=== PATIENT | female | born 1980 | race Caucasian/White ===

== ENCOUNTER 2017-11-16 09:23 | Emergency (ER) | payer OTHER ==
[~2017-11-16] VITALS: Ht 152.4 cm; Wt 105.9 kg
[2017-11-16 09:36] VITALS: TEMP 36.9; Ht 152.4 cm; Wt 105.9 kg
[2017-11-16 10:48] LABS: BASO % 0.6 %; BASO ABS # 0.05 K/uL (0-0.2); EOS % 2.8 %; EOS ABS # 0.24 K/uL (0-0.5); HEMOGLOBIN 14.3 g/dL (12.0-16.0); IG# 0.03 K/uL (0.00-0.02); LYMPH % 27.5 %; LYMPH ABS # 2.35 K/uL (1.2-3.4); MEAN CELL VOLUME 85.8 fL (80-100); MEAN CORPUSCULAR HEMOGLOBIN 28.5 pg (25-34); MEAN CORPUSCULAR HGB CONC 33.3 g/dl (32-36); MEAN PLATELET VOLUME 9.7 fL (7.4-10.4); MONO % 8.5 %; MONO ABS # 0.73 K/uL (0.11-0.59); NEUT % 60.2 %; NEUT ABS # 5.16 K/uL (1.4-6.5); PLATELET COUNT 197 K/uL (130-400); RED CELL DISTRIBUTION WIDTH CV 14.1 % (11.5-14.5); RED CELL DISTRIBUTION WIDTH SD 43.8 fL (36.4-46.3); WHITE BLOOD COUNT 8.56 K/uL (4.8-10.8)
[2017-11-16 10:57] LABS: INR 0.9 (0.9-1.1); PTT PATIENT 25.4 SECONDS (21.0-31.0)
[2017-11-16 11:18] LABS: ALBUMIN 3.9 gm/dl (3.4-5.0); ALT/SGPT 20 U/L (12-78); AST/SGOT 11 U/L (15-37); BLOOD UREA NITROGEN 10 mg/dl (7-18); CALCIUM 9.4 mg/dl (8.5-10.1); CARBON DIOXIDE 24 mmol/L (21-32); CREATININE 0.71 mg/dl (0.60-1.20); GLUCOSE 102 mg/dl (70-99); POTASSIUM 4.2 mmol/L (3.5-5.1); SODIUM 139 mmol/L (136-145)
[2017-11-16 11:20] LABS: ALKALINE PHOSPHATASE 51 U/L (45-117); TOTAL PROTEIN 7.1 gm/dl (6.4-8.2)
[2017-11-16] MEDS ORDERED: TRAZ50TA35 PO (11:30)
[2017-11-16] MEDS ORDERED: PRAV20TA PO (11:30)
[2017-11-16] MEDS ORDERED: ERGO500037 PO (11:30)
[2017-11-16] MEDS ORDERED: CHOL20009 PO (11:30)
[2017-11-16] MEDS ORDERED: CLR10 PO (11:30)
[2017-11-16] MEDS ORDERED: MONT1TAB3 PO (11:30)
[2017-11-16] MEDS ORDERED: SERT-234 PO (11:30)
[2017-11-16] MEDS ORDERED: MOME100A INH (11:30)
[2017-11-16] MEDS ORDERED: TIZA2CAP PO (11:30)
[2017-11-16] MEDS ORDERED: OPTIRAY 320 IV PRN (11:45)
--- NOTE | 2017-11-16 11:50 | DIAGNOSTIC IMAGING REPORT ---
HEAD CT NONCONTRAST CT DOSE: 1192.64 mGy.cm HISTORY: Headache. eval for cva/mass TECHNIQUE: Multiaxial CT images of the head were performed without the use of intravenous contrast. Automated exposure control was utilized for this study. A dose lowering technique was utilized adhering to the principles of ALARA. Comparison: None. Findings: The paranasal sinuses and mastoid air cells are clear. The calvarium and skull base are intact. The ventricles and sulci are within normal limits. There is no mass, hematoma, midline shift, or acute infarct. Impression: No acute intracranial abnormality. Electronically signed by: Gustavo Agarwal M.D. 11/16/2017 11:49 AM Dictated Date/Time: 11/16/2017 11:42 AM
--- NOTE | 2017-11-16 11:57 | DIAGNOSTIC IMAGING REPORT ---
CT OF THE NECK WITH CONTRAST CLINICAL HISTORY: Left sided swelling. Evaluate for abscess. COMPARISON STUDY: No previous studies for comparison. TECHNIQUE: Axial images of the neck were obtained following intravenous injection of 88 cc of Optiray 320 IV. Sagittal and coronal reconstructions were viewed. FINDINGS: No abscess is identified within the neck. There is tonsillar hypertrophy which results in airway narrowing. There is mild mucosal thickening of the sinuses. There are secretions within the left sphenoid sinus. There is a cavity of the left third maxillary molar. There is a small periapical lucency of this tooth. No adjacent soft tissue abscess is identified. Several teeth are missing. Major vasculature of the neck is patent. Lung apices are unremarkable. No suspicious osseous lesions are present. IMPRESSION: 1. No abscess within neck. 2. Tonsillar hypertrophy which results in moderate airway narrowing. 3. Periapical abscess/cyst and cavity involving the left third maxillary molar. Cavity of the left second maxillary molar. Electronically signed by: Alexi Pyle M.D. 11/16/2017 11:56 AM Dictated Date/Time: 11/16/2017 11:47 AM
[2017-11-16] MEDS ORDERED: AMOX875T PO (12:18)
[2017-11-16] MEDS ORDERED: OXYC1TAB3 PO (12:18)
[2017-11-16] MEDS ORDERED: OXYCODONE HCL IR 5 MG TAB (IMMEDIATE RELEASE) PO STA (12:19)
[2017-11-16] MEDS ORDERED: AMOXICILLIN/CLAVULANATE TAB 875 MG TAB PO ONE (12:30)
[2017-11-16 12:37] VITALS: BP 148/69; PULSE 82; O2SAT 97
--- NOTE | 2017-11-16 17:17 | EMERGENCY ROOM VISIT NOTE ---
History Report prepared by Brittni: Josee Rdz Under the Supervision of: Dr. Ronan Blackmon M.D. First contact with patient: 09:49 Chief Complaint: OTHER COMPLAINT Stated Complaint: OCIPITAL NURALOYIA ABCESS,PAIN SWELLING LEFT SIDE History of Present Illness The patient is a 37 year old female who presents to the Emergency Room with complaints of constant left-sided facial pain for the past month. The patient has a history of occipital neuralgia, myofascial pain syndrome, and cervical disc problems around C3-C6. She has had pain for the past 3-4 years. She has been following up with pain management in [place] and a neurologist in [place] to manage her pain. She has had injections and epidurals in the past for pain but states that she has not had any for a while. She is not currently taking any narcotics. She states that she has not been on narcotics for months. She has an impacted wisdom tooth on the left side of her jaw. She was on Augmentin and steroids at the beginning of the month for this and bronchitis and her COPD. The patient states that her pain has persisted. She is currently complaining of pressure and pain behind her left eye, down her face, into her neck, and down into her left shoulder and arm. She feels like she is unable to breathe out of her left nostril. Her jaw and neck feel swollen. The patient states that she has been having a headache. She has a history of migraines. For the past week and a half she has been having some numbness in her left arm. Today she noticed some cloudy vision in her left eye and states that it feels like she has a film over her pupil. She denies any eye pain. She just states that it hurts behind her eye like a migraine. The patient has been taking Tylenol daily for pain. She estimates that she has been taking 1000mg 6x daily for the past month. She rates her current pain as a 10/10 in severity. Source of History: patient Onset: 1 month ago Position: head Symptom Intensity: 10/10 Quality: pressure Timing: constant Modifying Factors (Relieving): tylenol Associated Symptoms: + headache, + neck pain, + numbness (left arm) Note: Pt reports cloudy vision. Review of Systems See HPI for pertinent positives & negatives. A total of 10 systems reviewed and were otherwise negative. Past Medical & Surgical Medical Problems: (1) COPD (chronic obstructive pulmonary disease) (2) Myofascial pain syndrome (3) Occipital neuralgia Family History No pertinent history stated. Social History Smoking Status: Current Every Day Smoker Housing Status: lives with family Current/Historical Medications Scheduled Amoxicillin & Pot Clavulanate (Augmentin 875-125 mg), 875 MG PO BID Cholecalciferol (Vitamin D), 2,000 UNITS PO DAILY Ergocalciferol (Vitamin D 78977 Unit), 50,000 UNIT PO WK Loratadine (Claritin), 10 MG PO DAILY Mometasone Furoate-Formoterol (Dulera 100/5 Mcg), 1 AER INH BID Montelukast Sodium (Singulair), 10 MG PO DAILY Pravastatin (Pravachol ), 20 MG PO DAILY Sertraline (Zoloft), 100 MG PO DAILY Tizanidine (Zanaflex), Unknown Dose PO TID Scheduled PRN Oxycodone Ir (Roxicodone Ir), 5 MG PO Q4H PRN for Pain Trazodone Hcl (Trazodone), Unknown Dose PO HS PRN for Sleep Allergies Coded Allergies: Ciprofloxacin (Unverified Allergy, Unknown, ., 11/16/17) Citalopram (Unverified Allergy, Unknown, ., 11/16/17) Codeine (Unverified Allergy, Unknown, AGITATION, 11/16/17) Hydroxyzine (Unverified Allergy, Unknown, ., 11/16/17) Ketorolac (Unverified Allergy, Unknown, ., 11/16/17) Lorazepam (Unverified Allergy, Unknown, ., 11/16/17) Morphine (Unverified Allergy, Unknown, INCREASED BP, 11/16/17) Moxifloxacin (Unverified Allergy, Unknown, ., 11/16/17) Nitrofurantoin (Unverified Allergy, Unknown, SWELLING, 11/16/17) Paroxetine (Unverified Allergy, Unknown, AGITATION, 11/16/17) Sulfa Antibiotics (Unverified Allergy, Unknown, SWELLING, 11/16/17) Sumatriptan (Unverified Allergy, Unknown, LOW BP, 11/16/17) Tramadol (Unverified Allergy, Unknown, FACE BREAKS OUT, 11/16/17) Tromethamine (Unverified Allergy, Unknown, ., 11/16/17) Valproic Acid (Unverified Allergy, Unknown, SEVERE PAIN, 11/16/17) Uncoded Allergies: HYDROBROMIDE (Allergy, Severe, UNKNOWN, 11/16/17) Physical Exam Vital Signs Date Time Temp Pulse Resp B/P (MAP) Pulse Ox O2 Delivery O2 Flow Rate FiO2 11/16/17 12:37 82 18 148/69 97 11/16/17 12:10 68 18 117/65 98 Room Air 11/16/17 09:36 36.9 101 18 96 Room Air Physical Exam Constitutional: Vital signs reviewed. BP 117/65 Eyes: Pupils are equal round reactive to light. Conjunctiva are noninjected. Unremarkable funduscopic exam bilaterally, limited due to lack of dilation. Left lazy eye noted. ENT: Pharynx is clear without erythema or exudate. Mucous membranes are moist. Neck supple without meningeal signs. Left facial tenderness with tenderness in the neck, no appreciable swelling, erythema, or increased warmth. Respiratory: Clear to auscultation bilaterally. Breath sounds are equal bilaterally. Cardiovascular: Regular rate and rhythm. No rubs or gallops. GI: Soft, nondistended and nontender. Bowel sounds are present. Musculoskeletal: No peripheral edema. No lower extremity tenderness. Integumentary: No cyanosis. Neurological: The patient is awake and alert. Cranial nerves II-XII are intact. Motor is 5 out of 5 all extremities. Sensation is intact to light touch all extremities, except some dysesthesia to the left upper arm. Normal speech. No pronator drift. Psychiatric: Normal affect. Medical Decision & Procedures ER Provider Diagnostic Interpretation: Radiology results as stated below per my review and the radiologist's interpretation: CT OF THE NECK WITH CONTRAST CLINICAL HISTORY: Left sided swelling. Evaluate for abscess. COMPARISON STUDY: No previous studies for comparison. TECHNIQUE: Axial images of the neck were obtained following intravenous injection of 88 cc of Optiray 320 IV. Sagittal and coronal reconstructions were viewed. FINDINGS: No abscess is identified within the neck. There is tonsillar hypertrophy which results in airway narrowing. There is mild mucosal thickening of the sinuses. There are secretions within the left sphenoid sinus. There is a cavity of the left third maxillary molar. There is a small periapical lucency of this tooth. No adjacent soft tissue abscess is identified. Several teeth are missing. Major vasculature of the neck is patent. Lung apices are unremarkable. No suspicious osseous lesions are present. IMPRESSION: 1. No abscess within neck. 2. Tonsillar hypertrophy which results in moderate airway narrowing. 3. Periapical abscess/cyst and cavity involving the left third maxillary molar. Cavity of the left second maxillary molar. Electronically signed by: Alexi Pyle M.D. 11/16/2017 11:56 AM Dictated Date/Time: 11/16/2017 11:[address]AST CT DOSE: 1192.64 mGy.cm HISTORY: Headache. eval for cva/mass TECHNIQUE: Multiaxial CT images of the head were performed without the use of intravenous contrast. Automated exposure control was utilized for this study. A dose lowering technique was utilized adhering to the principles of ALARA. Comparison: None. Findings: The paranasal sinuses and mastoid air cells are clear. The calvarium and skull base are intact. The ventricles and sulci are within normal limits. There is no mass, hematoma, midline shift, or acute infarct. Impression: No acute intracranial abnormality. Electronically signed by: Gustavo Agarwal M.D. 11/16/2017 11:49 AM Dictated Date/Time: 11/16/2017 11:42 AM Laboratory Results 11/16/17 10:40 Red Blood Count 5.01, Mean Corpuscular Volume 85.8, Mean Corpuscular Hemoglobin 28.5, Mean Corpuscular Hemoglobin Concent 33.3, Mean Platelet Volume 9.7, Neutrophils (%) (Auto) 60.2, Lymphocytes (%) (Auto) 27.5, Monocytes (%) (Auto) 8.5, Eosinophils (%) (Auto) 2.8, Basophils (%) (Auto) 0.6, Neutrophils # (Auto) 5.16, Lymphocytes # (Auto) 2.35, Monocytes # (Auto) 0.73, Eosinophils # (Auto) 0.24, Basophils # (Auto) 0.05 11/16/17 10:40 Test 11/16/17 10:20 11/16/17 10:40 Urine Test NEG (NEG) Urine Opiates Screen NEG (NEG) Urine Methadone, Qualitative NEG (NEG) Urine Barbiturates NEG (NEG) Urine Phencyclidine (PCP) Level NEG (NEG) Ur Amphetamine/Methamphetamine NEG (NEG) MDMA (Ecstasy) Screen NEG (NEG) Urine Benzodiazepines Screen NEG (NEG) Urine Cocaine Metabolite NEG (NEG) Urine Marijuana (THC) NEG (NEG) White Blood Count 8.56 K/uL (4.8-10.8) Red Blood Count 5.01 M/uL (4.2-5.4) Hemoglobin 14.3 g/dL (12.0-16.0) Hematocrit 43.0 % (37-47) Mean Corpuscular Volume 85.8 fL (80-100) Mean Corpuscular Hemoglobin 28.5 pg (25-34) Mean Corpuscular Hemoglobin Concent 33.3 g/dl (32-36) Platelet Count 197 K/uL (130-400) Mean Platelet Volume 9.7 fL (7.4-10.4) Neutrophils (%) (Auto) 60.2 % Lymphocytes (%) (Auto) 27.5 % Monocytes (%) (Auto) 8.5 % Eosinophils (%) (Auto) 2.8 % Basophils (%) (Auto) 0.6 % Neutrophils # (Auto) 5.16 K/uL (1.4-6.5) Lymphocytes # (Auto) 2.35 K/uL (1.2-3.4) Monocytes # (Auto) 0.73 K/uL (0.11-0.59) Eosinophils # (Auto) 0.24 K/uL (0-0.5) Basophils # (Auto) 0.05 K/uL (0-0.2) RDW Standard Deviation 43.8 fL (36.4-46.3) RDW Coefficient of Variation 14.1 % (11.5-14.5) Immature Granulocyte % (Auto) 0.4 % Immature Granulocyte # (Auto) 0.03 K/uL (0.00-0.02) Prothrombin Time 9.6 SECONDS (9.0-12.0) Prothromb Time International Ratio 0.9 (0.9-1.1) Activated Partial Thromboplast Time 25.4 SECONDS (21.0-31.0) Partial Thromboplastin Ratio 1.0 Anion Gap 8.0 mmol/L (3-11) Est Creatinine Clear Calc Drug Dose 119.3 ml/min Estimated GFR () 126.1 Estimated GFR (Non- 108.8 BUN/Creatinine Ratio 14.3 (10-20) Calcium Level 9.4 mg/dl (8.5-10.1) Total Bilirubin 0.5 mg/dl (0.2-1) Direct Bilirubin < 0.1 mg/dl (0-0.2) Aspartate Amino Transf (AST/SGOT) 11 U/L (15-37) Alanine Aminotransferase (ALT/SGPT) 20 U/L (12-78) Alkaline Phosphatase 51 U/L (45-117) Total Protein 7.1 gm/dl (6.4-8.2) Albumin 3.9 gm/dl (3.4-5.0) Salicylates Level 4.3 mg/dl (2.8-20) Acetaminophen Level < 2 ug/ml (10-30) Laboratory results as reviewed by me. Medications Administered Medications (Trade) Dose Ordered Sig/Vidhi Route Start Time Stop Time Status Last Admin Dose Admin Oxycodone HCl (Roxicodone Immediate Rel Tab) 5 mg NOW STAT PO 11/16/17 12:19 11/16/17 12:20 DC 11/16/17 12:32 5 MG Amoxicillin/ Clavulanate Potassium (Augmentin Tab) 875 mg ONE ONCE PO 11/16/17 12:30 11/16/17 12:31 DC 11/16/17 12:32 875 MG ED Course 0949: The patient was evaluated in room B3B. A complete history and physical exam was performed. 1212: I reassessed the patient at this time. She is feeling better and resting comfortably. I discussed the results and treatment plan with the patient. I answered all pertaining questions that she had. She expressed understanding and verbalized agreement. I was going to give the patient a dose of Unasyn in the ED but she is requesting to leave because her ride has to go to work. She will be treated as an outpatient with Augmentin and oxycodone and she will call her PCP to schedule a follow-up with oral surgery. The patient will be discharged home. 1219: Oxycodone HCl 5 mg PO 1230: Augmentin 875 mg PO Medical Decision This is a 37-year-old female who presents with facial pain and headache with some visual symptoms. Differential diagnosis includes migraine headache, facial abscess, periapical abscess, cervical radiculopathy, occipital neuralgia. I did perform a limited focused review of portions of the patient's old chart on the electronic medical record. The patient has had no recent pertinent visits to this hospital. I did evaluate the patient as noted above. The patient is presenting with several complaints. She has some blurring of vision which she describes as a film over her eye. It is transient. We did check her visual acuity which was 20/40 in both eyes. She has a normal funduscopic exam without papilledema or retinal abnormality. She was advised to follow-up with an eye doctor regarding her visual complaints. She also complains of pain to the left side of her face and neck with a resulting headache. She has a long-standing history of cervical disc disease as well as occipital neuralgia. She does complain of pain down the left arm and states she has disc disease and C3-C6. She complains of some dysesthesia to the left arm which has been going on for over a month. On exam she has no motor deficits throughout all distributions of the upper extremities. She has noted deficits in the lower extremities as well. She was advised to follow with pain management regarding the symptoms. She also complains of facial pain and recently had a dental infection but has not followed up with her dentist. She was on Augmentin. IV access was established. I did order and review the patient's blood work as noted in the electronic medical record. Her white blood cell count is not elevated. Urine test is negative. I did order a CT of the head and soft tissue neck. I did review the images myself as well as the radiology report as described above. She does have a periapical abscess. I did discuss the test results with the patient. I was going to treat her with IV Unasyn but she stated that her ride had to go home and so she had to leave. I did discuss optimal antibiotic coverage with the ED pharmacist. She recommended continuing Augmentin. I did go ahead and treat patient with a dose of Augmentin and oxycodone here. She was advised to avoid taking excessive amount of Tylenol. She was discharged with a prescription for Augmentin and oxycodone. She will call her doctor in order to be seen by an oral surgeon as her dental appointment is not until November. She was given return instructions as outlined below. She will follow up with her eye doctor regarding her eye symptoms and return should they recur. [place] Drug Monitoring Program Search Results: patient reviewed within database Drug Monitoring Findings: Pt last had Percocet in March 2017. Medication Reconcilliation Current Medication List: was personally reviewed by me Blood Pressure Screening Patient's blood pressure: Normal blood pressure Impression Primary Impression: Periapical abscess Additional Impressions: Visual complaint Headache Cervical radiculopathy Scribe Attestation The scribe's documentation has been prepared under my direct and personally reviewed by me in its entirety. I confirm that the note above accurately reflects all work, treatment, procedures, and medical decision making performed by me. Departure Information Dispostion Home / Self-Care Prescriptions Amoxicillin & Pot Clavulanate (Augmentin 875-125 mg) 1 Tab Tab 875 MG PO BID for 10 Days, #20 TAB Prov: Ronan Blackmon M.D. 11/16/17 Oxycodone Ir (Roxicodone Ir) 5 Mg Tab 5 MG PO Q4H Y for Pain, #20 TAB Prov: Ronan Blackmon M.D. 11/16/17 Referrals Cony Morales PA-C (PCP) Forms HOME CARE DOCUMENTATION FORM, IMPORTANT VISIT INFORMATION, WORK / SCHOOL INSTRUCTIONS Patient Instructions Dental Abscess, ED Cervical Radiculopathy, My [facility] Additional Instructions You have been examined and treated today on an emergency basis only. This is not a substitute for, or an effort to provide, complete comprehensive medical care. It is impossible to recognize and treat all injuries or illnesses in a single emergency department visit. It is therefore important that you follow up closely with your physician, your dentist and your eye doctor. Call as soon as possible for an appointment. Return for worsening symptoms or if you develop fever, vomiting, loss of vision, numbness or weakness to one side or body, loss of control of your bowel or bladder or any other concerning symptoms. Take probiotics or eat yogurt to help prevent diarrhea and bowel infection from Augmentin. Problem Qualifiers Additional Impressions: Headache Headache type: unspecified Headache chronicity pattern: acute headache Intractability: not intractable Qualified Codes: R51 - Headache
== END 2017-11-16 12:38 | disposition home or self-care (01) ==
LOC: C.EDB 09:28
DX: K04.7 Periapical abscess without sinus (principal); R51 Headache; M54.12 Radiculopathy, cervical region; J44.9 Chronic obstructive pulmonary disease, unspecified; M79.1 Myalgia; F17.200 Nicotine dependence, unspecified, uncomplicated; Z88.8 Allergy status to other drugs, medicaments and biological substances

== ENCOUNTER 2017-12-09 01:28 | Emergency (ER) | payer OTHER ==
[~2017-12-09] VITALS: Ht 152.4 cm; Wt 103.3 kg
[~2017-12-09 01:28] MED LIST: CHOL20009 PO; CLR10 PO; ERGO500037 PO; MOME100A INH; MONT1TAB3 PO; OXYC1TAB3 PO; PRAV20TA PO; SERT-234 PO; TIZA2CAP PO; TRAZ50TA35 PO
[2017-12-09 01:33] VITALS: TEMP 36.8; Ht 152.4 cm; Wt 103.3 kg
[2017-12-09] MEDS ORDERED: AMOX875T PO (02:33)
[2017-12-09] MEDS ORDERED: AMOXICIL/CLAVU 875MG HOME PACK PO ONE (02:45)
[2017-12-09] MEDS ORDERED: ACETAMINOPHEN 500 MG TAB PO ONE (03:05)
[2017-12-09 03:09] VITALS: BP 136/87; PULSE 85; O2SAT 96
[2017-12-09] MEDS ORDERED: NURSING VERBAL MED ORDER ONE (03:15)
--- NOTE | 2017-12-09 23:09 | EMERGENCY ROOM VISIT NOTE ---
History First contact with patient: 02:15 Chief Complaint: FACIAL PAIN/INJURY Stated Complaint: SEVERE PAIN,NUMBNESS L SIDE,BLOOD DRAINAGE THROAT History of Present Illness The patient is a 37 year old female who presents to the Emergency Room with multiple complaints. The patient is primarily complaining of left-sided dental and facial pain. She reports history of chronic neuralgia in the left side of her face, that is acutely exacerbated. She is previously followed with the pain clinic for chronic neck pain, but is no longer under their service. She has an upcoming appointment with her primary care physician in a few weeks, but states her pain is worse tonight. She was recently seen here in this facility where a CT scan was done for similar complaints and did reveal a dental abscess. She was treated with antibiotics, which appeared to improve her symptoms for a short period of time. She states that her discomfort has returned, and rates it a 10/10. She has been taking Tylenol without any relief of symptoms. She is not able to sleep because of her discomfort. She has multiple allergies to pain medication, and is specifically requesting Dilaudid or "Percocet IR". Review of Systems More than 10 systems were reviewed and otherwise negative with the exception of history of present illness. Past Medical/Surgical History Medical Problems: (1) COPD (chronic obstructive pulmonary disease) (2) Myofascial pain syndrome (3) Occipital neuralgia Family History No pertinent family history Social History Smoking Status: Current Every Day Smoker Housing Status: lives with family Current/Historical Medications Scheduled Amoxicillin & Pot Clavulanate (Augmentin 875-125 mg), 1 TAB PO BID Cholecalciferol (Vitamin D), 2,000 UNITS PO DAILY Ergocalciferol (Vitamin D 48392 Unit), 50,000 UNIT PO WK Loratadine (Claritin), 10 MG PO DAILY Mometasone Furoate-Formoterol (Dulera 100/5 Mcg), 1 AER INH BID Montelukast Sodium (Singulair), 10 MG PO DAILY Pravastatin (Pravachol ), 20 MG PO DAILY Sertraline (Zoloft), 100 MG PO DAILY Tizanidine (Zanaflex), Unknown Dose PO TID Scheduled PRN Trazodone Hcl (Trazodone), Unknown Dose PO HS PRN for Sleep Physical Exam Vital Signs Date Time Temp Pulse Resp B/P (MAP) Pulse Ox O2 Delivery O2 Flow Rate FiO2 12/09/17 03:09 85 18 136/87 96 12/09/17 01:33 36.8 79 18 138/85 96 Room Air Physical Exam VITALS: Vitals are noted on the nurse's note and reviewed by myself. Vital signs stable. GENERAL: Well-developed, well-nourished, white female, who is in no acute distress and resting comfortably. Patient is cooperative with the examination. EARS: External ear normal. External auditory canals clear, tympanic membranes pearly silva without erythema or effusion bilaterally. EYES: Pupils equal round and reactive to light and accommodation. Conjunctivae without injection, sclerae without icterus. Extraocular movements intact. NOSE: Patent, turbinates without inflammation or discharge. MOUTH: Mucous membranes moist. Tonsils are not enlarged. Dentition in poor repair. No obvious distinct abscess. The left upper molars are very carious NECK: Supple without nuchal rigidity. No lymphadenopathy. No thyromegaly. Cervical spine is nontender. HEART: Regular rate and rhythm without murmurs gallops or rubs. LUNGS: Clear to auscultation bilaterally without wheezes, rales or rhonchi. No retractions or accessory muscle use. Medical Decision & Procedures Medications Administered Medications (Trade) Dose Ordered Sig/Vidhi Route Start Time Stop Time Status Last Admin Dose Admin Amoxicillin/ Clavulanate Potassium (Augmentin 875MG Home Pack) 1 homepack UD ONCE PO 12/09/17 02:45 12/09/17 02:46 DC 12/09/17 03:01 1 HOMEPACK Acetaminophen (Tylenol Tab) 1,000 mg STK-MED ONCE PO 12/09/17 03:05 12/09/17 03:06 DC 12/09/17 03:09 1,000 MG ED Course Physical exam and history were performed. Nursing notes, EMR, and Medication List were personally reviewed. Patient appears to have reports of left-sided facial pain. She is requesting pain medication tonight, but has evidently been released from pain management recently. On examination she does not have significant acute findings other than poor dentition. On previous imaging last month she did have a dental abscess. She has yet to follow with a dentist because of insurance issues. I explained that because of her extensive allergies that I did not have an appropriate pain treatment here other than Tylenol, which was provided. The patient will be started on Augmentin for likely dental infection. She is to follow with the dentist for definitive care. She is to keep her appointment with her PCP. She was otherwise invited back to the ER with any new, worsening , or concerning symptoms. The chart was completed utilizing [employer] Speech Voice Recognition Software. Grammatical errors, random word insertions, pronoun errors, and incomplete sentences are an occasional consequence of this system due to software limitations, ambient noise, and hardware issues. Any formal questions or concerns about the content, text, or information contained within the body of this dictation should be directly addressed to the provider for clarification. . Medical Decision Differential diagnosis includes, but is not limited to: Dental pain, sinusitis, otitis, neuralgia, malingering, and others Impression Primary Impression: Left-sided face pain Departure Information Dispostion Home / Self-Care Condition GOOD Prescriptions Amoxicillin & Pot Clavulanate (Augmentin 875-125 mg) 1 Tab Tab 1 TAB PO BID for 10 Days, #20 TAB Prov: Stefano Cornejo PA-C 12/09/17 Forms HOME CARE DOCUMENTATION FORM, IMPORTANT VISIT INFORMATION Patient Instructions My [facility] Additional Instructions You were seen and evaluated today on an emergency basis only. This is not a substitute for, or an effort to provide, complete comprehensive medical care. It is not possible to recognize and treat all injuries or illnesses in a single emergency department visit. For this reason it is recommended that you followup with Pain management and her dentist as soon as possible for ongoing care For baseline pain relief you may alternate ibuprofen and acetaminophen every 4 hours for pain control. Take 600 mg ibuprofen (Advil) and then 4 hours later take 1000 mg acetaminophen (Tylenol). Do not take more than 3000 mg acetaminophen in a single day. Amoxicillin Clavulanate (Augmentin) 875mg: Take one pill twice daily for 10 days for your infection. All antibiotics can cause diarrhea. If this occurs and you feel worse or it does not resolve in 1-2 days follow up with your doctor or return to the Emergency Department as this could be signs of serious underlying problems. Any medication can cause an allergic reaction, stop the pills immediately and return to the ER for rash, hives, breathing difficulties, or swelling. You are welcome to return to the emergency department anytime with new, worsening, or concerning symptoms.
== END 2017-12-09 03:12 | disposition home or self-care (01) ==
LOC: C.EDB 01:30 → C.EDA 03:12
DX: R51 Headache (principal); J44.9 Chronic obstructive pulmonary disease, unspecified; F17.200 Nicotine dependence, unspecified, uncomplicated